=== PATIENT | female | born 2005 | race Hispanic/Latino ===

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

== ENCOUNTER 2024-09-13 05:59 | Emergency (ER) | payer OTHER ==
[2024-09-13] MEDS ORDERED: Ketorolac Tromethamine 30 MG (1 mL) VIAL ONE (06:21)
[2024-09-13] MEDS ORDERED: predniSONE 20 MG TAB ONE (06:21)
== END 2024-09-13 08:01 | disposition home or self-care (01) ==
LOC: ERS 05:59
DX: J03.90 Acute tonsillitis, unspecified (principal); F17.290 Nicotine dependence, other tobacco product, uncomplicated
CPT/HCPCS: 87081; 87430; 96372; 99282; J1885; J7512

== ENCOUNTER 2024-10-29 09:35 | Outpatient (CLI) | payer OTHER | END 2024-10-29 09:36 | disposition home or self-care (01) | LOC: BICCT 09:35 | PROVIDERS: ATTEND Otolaryngology Plastic Surgery within the Head & Neck | DX: R09.81 Nasal congestion (principal); J32.0 Chronic maxillary sinusitis; J34.2 Deviated nasal septum ==